=== PATIENT | male | born 1990 | race Caucasian/White ===

== ENCOUNTER 2018-09-08 09:36 | Emergency (ER) | payer OTHER, MEDICAID ==
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
[2018-09-08] MEDS ORDERED: ONDANSETRON DISINTEGRATING 4 MG TAB PO ONE (11:21)
[2018-09-08] MEDS ORDERED: CYCLOBENZAPRINE 10 MG TAB PO ONE (11:21)
[2018-09-08 11:52] VITALS: BP 118/64
== END 2018-09-08 11:53 | disposition home or self-care (01) ==
PROC: 0HQ1XZZ Repair Face Skin, External Approach (ICD-10-PCS; principal; 2018-09-08)
DX: S01.81XA Laceration without foreign body of other part of head, initial encounter (principal); S80.12XA Contusion of left lower leg, initial encounter; V47.9XXA Unspecified car occupant injured in collision with fixed or stationary object in traffic accident, initial encounter; Y92.9 Unspecified place or not applicable; Y93.9 Activity, unspecified; Y99.8 Other external cause status